=== PATIENT | female | born 1950 | race Caucasian/White ===

== ENCOUNTER 2024-09-07 20:57 | Inpatient (IN) | payer MEDICARE, SELFPAY ==
[2024-09-07] VITALS (10 sets, daily range): BP systolic 150–192; BP diastolic 76–100; BMI 18.1
[2024-09-07 17:29] LABS: Urine Albumin 3+ (Neg - Trace); Urine Bilirubin Negative (Negative); Urine Character Clear (Clear); Urine Color Yellow; Urine Glucose Negative (Negative); Urine Ketone Negative (Negative); Urine Leukocyte 2+ (Negative); Urine Nitrite Negative (Negative); Urine Occult Blood 2+ (Negative); Urine Specific Gravity 1.015 (<1.030); Urine Urobilinogen Negative (Neg - 1+)
[2024-09-07 17:50] LABS: Urine Squamous Cell 0-2 /LPF (Few)
[2024-09-07 17:51] LABS: Urine Bacteria Many (Negative); Urine White Cell 50-60 /HPF (0-5)
[2024-09-07 17:57] LABS: Hematocrit 19.5 % (37.0-47.0); Hemoglobin 6.7 g/dL (12.0-16.0); Mean Corp Hgb Conc. 34.4 g/dL (33.0-37.0); Mean Corpuscular Hgb 31.6 pg (27.0-31.0); Red Blood Cell Count 2.12 10^6/uL (4.20-5.40); Red Cell Dist. Width 13.2 % (11.5-14.5); White Blood Cell Count 16.9 10^3/uL (4.8-10.8)
[2024-09-07 18:05] LABS: Lactic Acid 1.3 mmol/L (0.7-2.0)
[2024-09-07 18:06] LABS: % Basophils 0.4 % (0-2); % Eosinophils 0.2 % (0-6); % Immature Granulocytes 0.7 % (0-0.5); % Monocytes 11.2 % (1.7-9.3); % Neutrophils 82.5 % (42.2-75.2); Absolute Basophils 0.1 10^3/uL (0-0.2); Absolute Immature Granulocytes 0.1 10^3/uL (0-0.05); Absolute Lymphocytes 0.8 10^3/uL (1.2-3.4); Absolute Monocytes 1.9 10^3/uL (0.1-0.6); Absolute Neutrophils 13.9 10^3/uL (1.4-6.5); Mean Platelet Volume 9.4 fL (7.4-10.4); Nucleated Red Blood Cells % 0 %; Platelet Count 678 10^3/uL (130-400)
[2024-09-07 18:16] LABS: ALT (SGPT) 25 U/L (0-35); AST (SGOT) 34 U/L (14-36); Albumin 3.8 g/dl (3.5-5.0); Alkaline Phosphatase 74 U/L (38-126); Blood Urea Nitrogen 82 mg/dl (7-17); Calcium 9.7 mg/dl (8.4-10.2); Carbon Dioxide 17 mmol/L (22-30); Chloride 108 mmol/L (98-107); Glucose 124 mg/dl (70-99); Sodium 136 mmol/L (135-145); Total Bilirubin 0.7 mg/dl (0.2-1.3); Total Protein 6.2 g/dl (6.3-8.2); eGFR 14.73
[2024-09-07] MEDS: NSS 500 IV (18:49)
[2024-09-07] MEDS: ROCEPHIN 1000 MG IV (18:49)
--- NOTE | 2024-09-07 18:57 | ED.GENMED ---
History of Present Illness
General
Chief Complaint: Change in Mental Status
Source: patient
Exam Limitations: none
Time Seen by Provider: 09/07/24 18:36
Nursing documentation reviewed up to this point in time: agreed with
History of Present Illness
History of Present Illness:
Patient with history of recent fall with pelvic fracture, who has not been able to ambulate for the past 2 months despite physical therapy, presents to ED from half-way secondary to increased weakness and depressed mental status. Upon arrival,
patient is found to be febrile and somnolent, but arousable. Patient with mild incoherent, slurred speech noted. Unable to obtain any further information at this time.
Review of Systems
Review of Systems
Allergies reviewed?: Yes
Unable to obtain full review of systems at this time due to: due to acuity
All Other Systems: Not applicable
Phy Exam
Physical Exam
Physical Exam:
Physical Exam
General: mild distress, not acutely ill. febrile.
Head: nc/at. eomi
Neck: supple. normal range of motion
Heart: tachycardic, regular. no murmur
Lungs: no acute respiratory distress. clear bilaterally
Abdomen: normal bowel sounds. not tender. rectal exam (EMMIE Villa, at bedside): dark green, heme positive
Neuro: somnolent but arousable. no focal deficit. slurred speech noted
Skin: no rash
Psychiatric: well kept. interactive and cooperative
Extremities: no edema.
Course
Orders/Labs/Results
Orders:
Orders
09/07/24 Breakfast
Clear Liquid
At Your Request: Limited Participation
09/07/24 17:06
Electrocardiogram (*1) Urgent
Reason for Study: Tachycardia
EKG- Treatment ONCE
09/07/24 17:17
CMP [Comprehensive Metabolic Panel] Urgent
Complete Blood Count/With Diff Urgent
Ferritin Urgent
Comment: ADD ON
Iron Urgent
Comment: ADD ON
Lactic Acid Urgent
Total Iron Binding Urgent
Comment: ADD ON
Urinalysis Reflex To Culture Urgent
Date Specimen was Collected: 09/07/24
Time Specimen was Collected: 17:06
Urine Microscopic Reflex Cult Urgent
Urine Culture Urgent
MARYCHUY Source: U
Specimen Description:
Date Specimen was Collected: 09/07/24
Time Specimen was Collected: 17:06
09/07/24 17:21
Blood Culture Urgent
MARYCHUY Source: Blood/Venous
Specimen Description:
09/07/24 17:40
Straight Cath As Directed
Frequency: One time now
09/07/24 18:41
Add On- LAB Urgent
Tests Added?: iron, ferritin, TIBC
CefTRIAXone [Rocephin] 1,000 mg IV NOW STA
09/07/24 18:42
CT Head W/o Iv Contrast Urgent
Comment:
Reason For Exam: mental status change w slurred speech
09/07/24 18:43
0.9% Sodium Chloride 500 ml [Nss] 500 ml IV BOLUS
Acetaminophen [Tylenol/Feverall] 650 mg RECTAL NOW STA
09/07/24 18:47
Type+Screen Urgent
09/07/24 19:53
* Blood Bank Products Urgent
Blood Bank Products: *Packed RBC Leuko(PRBC's)
Quantity: 1
Transfuse Today: Yes
Reason: Anemia
09/07/24 19:54
IV Insert/Care/Rem.- Treatment PRN
09/07/24 19:55
ABO2 Routine
BBK Wristband Number:
Associate notified that ABO2 has been ordered: Y
Date: 09/07/24
Time: 18:59
Leather Production Artisan ID: [id number]
09/07/24 20:34
CT Abd/pel Without Iv Or Oral Urgent
Comment:
Reason For Exam: Anemia, [place], Pelvic Fracture
09/07/24 20:42
Admit/Transfer Patient As Directed
Co-Sign Provider:
Level of Care: Inpatient admission
Assign to:: IMU- Intermediate Care
Physician / Group: [facility]
Diagnosis: Symptomatic Anemia, Sepsis / UTI, Acute TME
Reason for Hospitalization: Symptomatic Anemia, Sepsis / UTI, Acute TME
Expected length of stay greater than two midnights?: Yes
ELOS- Estimated Length of Stay in days: 4
I certify the patient meets the requirements for IP care: Yes
PRN Pain Medication Management As Directed
May give lesser potent ordered pain med per pt: Yes
preference::
Protocol:: Medication orders for pain may be administered in a
manner that supports deferring to patient preference
when the pt is:
- Requesting an ordered lesser potent pain medication.
Least to most potent pain medications are defined
as: acetaminophen < NSAID < tramadol < opioids
(morphine, oxycodone, hydromorphone).
- Requesting a lesser dose of the same medication IF
ORDERED.
- Requesting a less intrusive route of administration
if both routes are prescribed by the provider (PO <
IV).
09/07/24 20:43
Speech Screening from [place] Routine
09/07/24 20:44
Code Status As Directed
Resuscitation Status: Full Code
09/07/24 20:49
CXR2 [CR Chest - 2 Views ] Urgent
Comment:
Reason For Exam: Fever
09/07/24 22:23
Acetaminophen [Tylenol] 650 mg PO Q4HPRN PRN
Lorazepam [Ativan] 0.5 mg IV Q6HPRN PRN
Polyethylene Glycol Powder [Miralax] 17 grams PO HS
Sterile Water For Inj [Sterile Water For Injection 1000 ml] 1,000 ml Sodium Bicarbonate 150 meq IV 80 mls/hr
09/07/24 22:23
Activity As Directed
Activity Level: Ambulate
With Assistance
Bladder Scan As Directed
Follow Bladder Retention/Intermittent Cath Algorithm?: Yes
PRN if no void in __ hours: 6
Frequency: Per Retention Algorithm
If Bladder Scan Result >: 400
then:: Straight cath
I/O [Intake/ Output] As Directed
Frequency: Per unit guidelines
Neurological Checks As Directed
Frequency: q4h
Pneumatic Compression Sleeves As Directed
Type: Knee high
Straight Cath As Directed
Frequency: Per Retention Algorithm
Additional Instructions: straight cath as needed per acute urinary retention algorithm for 24 hrs
Additional Instructions: for bladder scan greater than 400 mL
Vital Signs As Directed
Frequency: Per unit guidelines
Weight As Directed
Frequency: Daily
Oxygen Therapy [O2 Therapy] [RESP] Routine
Titrate/Wean O2 to maintain O2 sat greater than (%): 94
Ot Eval And Treat Routine
PT Consult [Pt Eval And Treat] Routine
Activity Level: Ambulate
With Assistance
Speech Therapy Eval & Treat Routine
DX Deep Vein Thrombosis Video Routine
09/08/24 04:34
Basic Metabolic Panel IN AM
Complete Blood Count/No Diff IN AM
Magnesium IN AM
PTT IN AM
Phosphorus IN AM
Prothrombin Time IN AM
09/08/24 08:00
Amlodipine [Norvasc] 5 mg PO DAILY
Bupropion(24Hr)Extended Releas [WELLBUTRIN XL (24 hour extended release)] 150 mg PO DAILY
Ferrous Sulfate [Feosol] 325 mg PO BID
Sodium Bicarbonate 650 mg PO BID
Sodium Zirconium Cyclosilicate [Lokelma] 10 gram PO DAILY
09/08/24 18:00
CefTRIAXone [Rocephin] 1,000 mg IV Q24H
Abnormal Lab Results
09/07/24 09/07/24
17:17 18:47
WBC 16.9 H 10^3/uL
(4.8-10.8)
RBC 2.12 L 10^6/uL
(4.20-5.40)
Hgb 6.7 L* g/dL
(12.0-16.0)
Hct 19.5 L* %
(37.0-47.0)
MCH 31.6 H pg
(27.0-31.0)
Plt Count 678 H 10^3/uL
(130-400)
Abs Immat Gran (auto) 0.1 H 10^3/uL
(0-0.05)
Absolute Neuts (auto) 13.9 H 10^3/uL
(1.4-6.5)
Absolute Lymphs (auto) 0.8 L 10^3/uL
(1.2-3.4)
Absolute Monos (auto) 1.9 H 10^3/uL
(0.1-0.6)
Immature Gran % 0.7 H %
(0-0.5)
Neutrophils % 82.5 H %
(42.2-75.2)
Lymphocytes % 5.0 L %
(20.5-51.1)
Monocytes % 11.2 H %
(1.7-9.3)
Potassium 6.0 H mmol/L
(3.5-5.1)
Chloride 108 H mmol/L
(98-107)
Carbon Dioxide 17 L mmol/L
(22-30)
BUN 82 H mg/dl
(7-17)
Creatinine 3.2 H mg/dL
(0.6-1.0)
Glucose 124 H mg/dl
(70-99)
TIBC 204 L ug/dl
(265-497)
Ferritin 590.0 H ng/ml
(11.1-264.0)
Total Protein 6.2 L g/dl
(6.3-8.2)
Ur Occult Blood Reflex 2+ A
(Negative)
Leukocyte Esterase Rfl 2+ A
(Negative)
Urine RBC 3-6 A /HPF
(0-2)
Urine WBC (Reflex) 50-60 A /HPF
(0-5)
Urine Bacteria (Reflex) Many A
(Negative)
Urine Albumin (Reflex) 3+ A
(Neg - Trace)
Crossmatch IS Only See Detail
09/07/24 17:17
09/07/24 17:17
Vital Signs
Initial and Last Documented VS:
Initial Vital Signs
BP
160/76
09/07/24 16:51
Last Documented Vital Signs
Temp Pulse Resp BP Pulse Ox
99.5 F 94 14 152/95 96
09/08/24 11:15 09/08/24 10:15 09/08/24 10:15 09/08/24 09:31 09/08/24 10:43
MDM/Problems Addressed
MDM/Problems Addressed:
Patient's presenting symptoms likely multifactorial, including anemia along with UTI. CT head ordered secondary to slurred speech no acute findings noted.-
Patient will be admitted for IV antibiotics, IV fluids, and blood transfusion.
Blood transfusion consent, signed by patient's daughter.
*Critical Care Note
Total Time (30-74mins, 75-104mins- exclusive of procedures): Not Applicable
ED Attending Note
-
Portions of this chart may have been created with voice recognition software.� Occasional wrong word or��sound alike� substitutions may have occurred due to the inherent limitations of voice recognition software.
Discharge Plan
Departure
Patient Disposition: Admit
Date of Disposition: 09/07/24
Time of Disposition: 20:00
Admit to: Telemetry
Presentation/result/management discussed w/ accepting MD/DO: Hospitalist
Discharge Problem:
Acute UTI, Anemia, Altered mental status
Interventions
Interventions:
*Risk Screen - Suicide Last Done: 09/07/24 16:52
*General Assessment Last Done: 09/07/24 16:52
*Neglect/Abuse Screening Last Done: 09/07/24 16:52
*ED- Fall Risk Assessment Last Done: 09/07/24 16:52
*ED COVID-19 Vaccine History Last Done: 09/07/24 16:52
*Nursing Disposition Last Done: 09/07/24 22:37
ED- Neurological Assessment Last Done: 09/07/24 20:07
ED Swallowing Screen Last Done: 09/07/24 20:42
Discharge Date and Time
Discharge Date/Time: 09/07/24 22:38
[2024-09-07 19:09] LABS: Iron 50 ug/dl (37-170); Percent Saturation 24 % (20-50); Total Iron Binding Capacity 204 ug/dl (265-497)
[2024-09-07] MEDS: TYLENOL/FEVERALL 650 MG RECTAL (19:52)
--- NOTE | 2024-09-07 21:18 | HPS.HSE ---
Family Physician
-
Family Physician: Seymour Cedeno
Chief Complaint
-
Lethargy, Tachycardia
History of Present Illness
Patient is a 73y F with PMH significant for CKD IV, hyperkalemia, anemia of CKD and recent pelvic fracture who presents to ED from local OR for evaluation of lethargy and tachycardia. History obtained from OR record and family at the bedside.
Patient suffered pelvic fracture about one month ago - hospitalized at [facility]. She was transferred to [facility] about 3 weeks ago. Rehab has not been proceeding well and patient is largely inactive / not participating well with
therapy. Family states that she was seen last on Sat / Sun and was alert / talking at that time - if a bit weak and mildly confused. She has not had any evident cough, N/V/D, etc.
Today, patient was poorly responsive at the OR and noted to be tachycardic. She was sent to the ED for further evaluation.
At the time of my examination, patient is lethargic but does wake / respond to voice. She attempts to answer questions but seems very weak. Unable to provide any significant additional history.
Medical History
Past Medical History
Past Medical History: Reports Other
Additional Past Medical History:
CKD IV
Hyperkalemia
Anemia of CKD
Pelvic Fracture
Generalized Anxiety
Hypertension
Past Surgical History: Reports Other
Additional Past Surgical History:
Ex Lap / Small Bowel Resection (SBO)
TITO
Social History
Tobacco: Non-smoker
Alcohol: None
Drug: None
Family History
Family History: Not pertinent
Allergies / Home Medications
Allergies reflects when Allergies were last updated in [employer].
Home Medications with original date entered in [employer]
Allergy/Medication List:
Allergies
Allergy/AdvReac Type Severity Reaction Status Date / Time
Beta-Blockers Allergy Unknown Unknown Verified 09/07/24 17:02
(Beta-Adrenergic Bloc
Home Medications
acetaminophen 325 mg tablet 650 mg PO Q6H PRN Pain / Fever 09/07/24
amlodipine 5 mg tablet 5 mg PO DAILY 09/07/24
bisacodyl 10 mg rectal suppository 10 mg WV DAILY PRN constipation 09/07/24
bupropion HCl 150 mg 24 hr tablet, extended release 150 mg PO DAILY 09/07/24
cholecalciferol (vitamin D3) 50 mcg (2,000 unit) tablet 50 mcg PO DAILY 09/07/24
clonazepam 1 mg tablet 1 mg PO TID 09/07/24
famotidine 20 mg tablet 20 mg PO DAILY 09/07/24
ferrous sulfate 325 mg (65 mg iron) tablet 325 mg PO HS 09/07/24
heparin (porcine) 5,000 unit/mL injection syringe 5,000 unit SC Q8H 09/07/24
lidocaine 5 % topical cream 1 applic topical BID 09/07/24
polyethylene glycol 3350 17 gram oral powder packet (Miralax) 17 g PO HS 09/07/24
sennosides 8.6 mg tablet (senna) 8.6 mg PO BID 09/07/24
sodium bicarbonate 650 mg tablet 650 mg PO BID 09/07/24
sodium zirconium cyclosilicate 10 gram oral powder packet (Lokelma) 10 g PO DAILY 09/07/24
tramadol 50 mg tablet 50 mg PO BID 09/07/24
vitamin B complex 1 tab PO DAILY 09/07/24
Review of Systems
-
History Source: Patient (limited ROS due to lethargy / weakness) and Family
A 12 point ROS was completed and negative except as noted: Yes
Constitutional: Reports Fatigue
Respiratory: Denies Cough or Trouble Breathing
Cardiac: Denies Chest Pain
Abdomen/GI: Denies Abdominal Pain, Nausea, Vomiting or Diarrhea
Musculoskeletal: Reports Joint Pain
Physical Exam
Vital Signs
Vital Signs
Temp Pulse Resp BP Pulse Ox
98.1 F 106 17 169/82 97
09/07/24 21:16 09/07/24 21:16 09/07/24 21:16 09/07/24 21:16 09/07/24 21:16
Physical Exam
General: Other (73y F lethargic, not in obvious distress.)
HEENT: Other (Dry MM. Neck supple. Pupils narrow but reactive.)
Respiratory: Other (Few bibasilar rales - decreased effort - otherwise clear.)
Cardiac: S1/S2, Regular Rhythm and Murmur (II/ PADMINI)
GI: Soft, Non Distended, Normal Bowel Sounds and Other (Mild lower abdominal tenderness. No rebound / guarding.)
Musculoskeletal: No Clubbing, No Cyanosis and Other (Trace edema b/l feet. Pain with ROM either LE. R foot internally rotated.)
Neuro: Other (Lethargic. Open eyes to voice and attempts to answer questions - but soft / incomplete speech.)
Laboratory Results
-
09/07/24 17:17
09/07/24 17:17
Laboratory Results
Lactic Acid 1.3 mmol/L (0.7-2.0) 09/07/24 17:17
Total Bilirubin 0.7 mg/dl (0.2-1.3) 09/07/24 17:17
AST 34 U/L (14-36) 09/07/24 17:17
ALT 25 U/L (0-35) 09/07/24 17:17
Alkaline Phosphatase 74 U/L (38-126) 09/07/24 17:17
Impression/Plan
-
A/P: Patient is a 73y F with PMH significant for hypertension, CKD IV, chronic anemia and recent pelvic fracture who presents to ED from local OR for evaluation of lethargy and tachycardia.
Acute TME
- Admit for further evaluation and treatment.
- Likely multifactorial change in mental status.
- Med effect / sedation, sepsis, anemia, etc.
- Hold sedating meds acutely.
- Treat individual issues as noted below.
- Follow for clinical improvement.
Acute Blood Loss Anemia on Chronic Anemia of CKD
Heme Positive Stools
- Has known CKD and chronic anemia per family.
- Recent pelvic fracture so will check CT to rule out bleeding / hematoma in the pelvis.
- Hold heparin for now.
- Transfusion of one unit PRBCs ordered in the ED.
- Iron studies c/w chronic disease (or acute blood loss).
- Follow H&H for improvement / additional PRBCs if needed.
- Reportedly heme positive stool in the ED.
- Will ask GI to evaluate.
UTI
Sepsis secondary to the above
- Unable to elicit any symptoms due to current lethargy / metal status.
- UA with WBC and bacteria.
- Patient presents with fever, leukocytosis, tachycardia and abnormal UA.
- Continue IV ceftriaxone pending culture data.
- Follow fever curve and monitor for any new / focal signs or symptoms of infection.
- IVF support.
CKD IV
Chronic Hyperkalemia
Chronic Metabolic Acidosis
- Unclear baseline, though family reports CKD is stage IV.
- Patient is on chronic, daily Lokelma as well as bicarb supplementation.
- Continue current med regimen for now.
- IVFs with supplemental bicarb.
- Obtain prior records from [place] for review of labs / trends.
- Nephrology evaluation for additional recommendations.
Benign Hypertension
- Stable. Continue amlodipine with holding parameters.
Generalized Anxiety
- Patient noted to be on chronic clonazepam 1mg TID.
- Will hold for now along with other sedating medications given acute TME / lethargy.
- PRN lorazepam for breakthrough anxiety / to prevent any withdrawal symptoms.
Pelvic Fracture
- Poor progress with PT thus far per family.
- PT / OT evals here.
- Weight bearing as tolerated.
- Adjust pain regimen as able to minimize sedation.
DVT Prophylaxis: SCDs
Code Status: Full
[2024-09-07] MEDS: MIRALAX PO (23:18)
[2024-09-07] MEDS: SODIUM BICARBONATE 1150 MEQ IV (23:18)
--- NOTE | 2024-09-07 23:45 | PTCARENOTE ---
Received patient from ED on stretcher. Patient aao x1 to self. At times, patient attempts to speak, then appears to become frustrated and stops speaking. NSR to ST on the monitor, lung sounds diminished throughout, likely d/to poor respiratory
effort. BS active x4. Patient incontinent of soft, formed, green bm upon arrival to IMU. Stage 1 noted to sacrum, barrier ointment applied. Patient incontinent of urine upon arrival as well. Hygiene provided and purewick applied. Patient moaning
with activity, but calm and no s/s of pain at rest. 1u PRBC completed upon arrival to IMU as well. Patient unable to answer majority of questions due to cognition at this time. Call hamilton within reach, bed alarm on. Will continue to monitor patient
closely.
[2024-09-08] VITALS (15 sets, daily range): BP systolic 123–184; BP diastolic 80–106; PULSE 99; O2SAT 96; BMI 18.1
[2024-09-08 04:47] LABS: Hematocrit 32.4 % (37.0-47.0); Hemoglobin 10.9 g/dL (12.0-16.0); Mean Corp Hgb Conc. 33.6 g/dL (33.0-37.0); Mean Corpuscular Hgb 31.2 pg (27.0-31.0); Mean Corpuscular Volume 92.8 fL (81.0-99.0); Mean Platelet Volume 9.4 fL (7.4-10.4); Platelet Count 460 10^3/uL (130-400); Red Blood Cell Count 3.49 10^6/uL (4.20-5.40); Red Cell Dist. Width 13.8 % (11.5-14.5)
[2024-09-08 04:59] LABS: INR 1.08; PT 14.3 Sec (11.4-14.6)
[2024-09-08 05:00] LABS: APTT 27.6 Sec (23.4-35.0)
[2024-09-08 05:09] LABS: Blood Urea Nitrogen 76 mg/dl (7-17); Calcium 9.3 mg/dl (8.4-10.2); Carbon Dioxide 20 mmol/L (22-30); Chloride 110 mmol/L (98-107); Estimated Creatinine Clearance 12 ml/min; Glucose 98 mg/dl (70-99); Magnesium 2.3 mg/dl (1.6-2.3); Phosphorus 4.8 mg/dl (2.5-4.5); Potassium 4.8 mmol/L (3.5-5.1); Sodium 138 mmol/L (135-145)
[2024-09-08 06:23] LABS: TSH Reflex To Free T4 1.32 uIU/ml (0.47-4.68)
[2024-09-08] MEDS: NORVASC 5 MG PO (09:31)
[2024-09-08] MEDS: WELLBUTRIN XL (24 hour extended release) 150 MG PO (09:33)
[2024-09-08] MEDS: FEOSOL 325 MG PO ×2 (09:33→19:50)
[2024-09-08] MEDS: SODIUM BICARBONATE 650 MG PO ×2 (09:33→19:50)
--- NOTE | 2024-09-08 10:20 | CM ---
Patient from [facility] with Hx pelvic Fx with Dx Acute TME, Acute Blood Loss Anemia s/p transfusion, UTI, sepsis. Room air. Receiving IV Abx, IVF w Bicarb. WBAT. PT/OT held today. Per nurse; A/O x1,
Spoke with Lup[employer] Sim & Freddy, Badger Distiller Operator, [facility];
the patient came to them from [facility] on 08/05/24. She was living alone in an apartment in [place].
The patient was A/O x3, had aphasia.
She was assisted with ADLs and ambulatory 10 feet with RW.
The patient was receiving PT/OT: she was independent with UB dressing, required max assist LB dressing, moderate assist for toileting.
Patient's daughter Donna had been discussing managing patient's finances for possible shelter care.
Freddy states daughter had changed patient to straight Medicare on 09/05/24---> spoke with Donna, Admitting - she ran her and confirmed patient now has straight Medicare.
Plan follow up after patient works with PT/OT.
Plan follow up with daughter re; return to [facility].
[2024-09-08] MEDS: LOKELMA 10 GRAM PO (10:54)
[2024-09-08] MEDS: TYLENOL 650 MG PO (12:01)
[2024-09-08] MEDS: SODIUM BICARBONATE 1150 MEQ IV (12:01)
--- NOTE | 2024-09-08 12:19 | W.PN.HOSP.TC ---
Addendum entered and electronically signed by Emeterio Churchill MD 09/09/24 09:33:
not covid pna, meant to say acute blood loss anemia
Original Note:
Today's Communication/Plan
-
Assessment / Plan
Assessment / Plan
NAD
Scleral Anicteric
MMM
No JVD
CTABL
RRR, S1/S2
Soft, NT, ND, BS+
Warm, Dry
Lower extremity pain foot and right foot internally rotated/dropped
AAOx person
Calm
Acute toxic metabolic encephalopathy appears to be involving. Potentially related to COVID-pneumonia as hemoglobin of 6.9 with improvement after 1 unit PRBC. Continue to hold sedating medications. Urine analysis positive for findings consistent
with UTI therefore follow-up on urine culture continue antibiotics with Rocephin.
Anemia, normocytic�acute on chronic
S/p 1 unit PRBC
FOBT positive
GI consult
Transfuse if hemoglobin less than 7
CKD stage IV/V with evidence of metabolic acidosis complicated by hyperkalemia of 6.0 improved to 4.8
Continue bicarb 650 twice daily
S/p Lokelma continue daily dosing
Avoid nephrotoxins hypotension
Monitor urinary output
Nephrology follow-up
Hypertension
Continue antihypertensives
VIVIAN
Hold clonazepam acute TME/telemetry
Pelvic fracture
PT OT
Weight-bear as tolerated
Anticipated Discharge: > 48 hours
Subjective/Interval History
-
Date of Service: September 08, 2024
seen and examined. no new complaints. no acute ovenright events
Objective Data
-
Labs:
Laboratory Results
09/08/24
04:34
WBC 11.0 H
Hgb 10.9 L D
Hct 32.4 L
Plt Count 460 H D
PT 14.3
INR 1.08
APTT 27.6
Sodium 138
Potassium 4.8
Chloride 110 H
Carbon Dioxide 20 L
BUN 76 H
Creatinine 3.1 H
Glucose 98
Calcium 9.3
Vital Signs:
Vital Signs
Temp Pulse Resp BP Pulse Ox
99.5 F 94 14 152/95 96
09/08/24 11:15 09/08/24 10:15 09/08/24 10:15 09/08/24 09:31 09/08/24 10:43
I&O
09/07/24 09/08/24 09/09/24
06:59 06:59 06:59
Intake Total 250 / 250 240 / 240
Output Total 250 / 250 250 / 250
Balance 0 / 0 -10 / -10
--- NOTE | 2024-09-08 13:11 | PTOTSP ---
Speech Therapy Evaluation:
Pt presents with grossly functional oropharyngeal swallow at bedside, however trials limited 2/2 restriction to clear liquids. Risk of aspiration elevated given acute TME and ambulatory dysfunction with recent pelvic fracture. CXR without PNA, pt
afebrile, and pt on room air.
Recommend:
1. Continue thin liquid diet (clear liquids per medical team)
2. Medications as tolerated
3. General aspiration precautions
4. HAND ZIPPER TRIMMER to follow to monitor tolerance of diet and assess candidacy for initiation of solids when appropriate.
--- NOTE | 2024-09-08 16:03 | PTCARENOTE ---
Patient was drowsy this morning, by lunch time patient was awake and alert, able to feed herself, participated in physical therapy. Patients right foot in inverted inward, slightly swollen and painful. Discussed with PT and Dr. Churchill. Patient
received Tylenol this morning with relief however after PT her pain increased. New orders pending.
[2024-09-08] MEDS: ULTRAM 25 MG PO (16:19)
[2024-09-08] MEDS: STERILE WATER FOR INJECTION 10 ML IV (17:11)
[2024-09-08] MEDS: ROCEPHIN 1000 MG IV (17:12)
[2024-09-08] MEDS: MIRALAX 17 GRAMS PO (19:51)
--- NOTE | 2024-09-08 22:05 | PTCARENOTE ---
Patient aao x2-3 since start of shift, improved alertness since admission previous evening. Able to make needs known, continues with slow speech at times. NSR on the monitor, lungs diminished throughout. BS active x4. Purewick remains in place,
drained 500ml clear yellow urine at this time. Patient refusing hygiene at this time due to chronic pain to b/l feet. Will continue to monitor pain and review pain management techniques. Patient has IV to right wrist/fa with Sterile water and 150mEq
sodium bicarb. Call hamilton within reach, will continue to monitor patient closely.
[2024-09-09] VITALS (16 sets, daily range): BP systolic 143–176; BP diastolic 79–97; PULSE 88–92; O2SAT 96–98; BMI 19.0
[2024-09-09] MEDS: ULTRAM 25 MG PO ×2 (01:47→12:00)
[2024-09-09] MEDS: SODIUM BICARBONATE 1150 MEQ IV (01:48)
--- NOTE | 2024-09-09 01:59 | PTCARENOTE ---
Patient c/o pain 10/10 to b/l feet, states it has been 10/10 all day. PRN Tramadol administered per orders. Call hamilton within reach, will continue to monitor.
[2024-09-09 04:56] LABS: % Basophils 0.5 % (0-2); % Eosinophils 1.2 % (0-6); % Immature Granulocytes 0.5 % (0-0.5); % Monocytes 13.8 % (1.7-9.3); Absolute Eosinophils 0.1 10^3/uL (0-0.7); Absolute Lymphocytes 1.1 10^3/uL (1.2-3.4); Absolute Neutrophils 5.2 10^3/uL (1.4-6.5); Hematocrit 27.1 % (37.0-47.0); Hemoglobin 9.5 g/dL (12.0-16.0); Mean Corp Hgb Conc. 35.1 g/dL (33.0-37.0); Mean Corpuscular Hgb 31.6 pg (27.0-31.0); Mean Platelet Volume 9.3 fL (7.4-10.4); Nucleated Red Blood Cells % 0 %; Platelet Count 381 10^3/uL (130-400); Red Blood Cell Count 3.01 10^6/uL (4.20-5.40); Red Cell Dist. Width 13.3 % (11.5-14.5); White Blood Cell Count 7.5 10^3/uL (4.8-10.8)
[2024-09-09 05:30] LABS: Blood Urea Nitrogen 67 mg/dl (7-17); Calcium 8.7 mg/dl (8.4-10.2); Carbon Dioxide 31 mmol/L (22-30); Chloride 95 mmol/L (98-107); Estimated Creatinine Clearance 17 ml/min; Glucose 96 mg/dl (70-99); Potassium 3.9 mmol/L (3.5-5.1); Sodium 132 mmol/L (135-145)
[2024-09-09] MEDS: NSS 1000 IV (06:29)
--- NOTE | 2024-09-09 08:39 | PTCARENOTE ---
Patient received from bd special education teacher. Patient resting comfortably in bed. AAOx2-3, a little fleety and forgetful at times. No events noted overnight. Complaints of pain in feet and some generalized, see MAR. NSS @ 60mL/hr through IV. No testing
scheduled at this time. Call hamilton in reach.
[2024-09-09] MEDS: NORVASC 5 MG PO (09:12)
[2024-09-09] MEDS: FEOSOL 325 MG PO ×2 (09:12→20:20)
[2024-09-09] MEDS: WELLBUTRIN XL (24 hour extended release) 150 MG PO (09:12)
[2024-09-09] MEDS: SODIUM BICARBONATE 650 MG PO ×2 (09:12→20:20)
[2024-09-09] MEDS: LOKELMA PO (09:13)
[2024-09-09] MEDS: LOKELMA 10 GRAM PO (11:33)
--- NOTE | 2024-09-09 12:50 | PN.CDI ---
CDI
- -
CDI:
Physician Documentation Request
Admit Date: 09/07/24 20:57
Dear Doctor Zhao,
Please review the following and provide your response in the progress notes.
Clinical Indicators:
The diagnosis of sepsis was documented on 09/08 in H&P but is not consistently noted in subsequent documentation.
Presenting temp 100.5. heart rates 108-110, respiratory rates 14-18 WBC 16.9
Progress note states 'Urine analysis positive for findings consistent with UTI therefore follow-up on urine culture continue antibiotics with Rocephin.'
Urine culture positive for E coli
Please clarify the following:
____ - Sepsis was present on admission
____ - Sepsis was ruled out
____ - Other
Use of terms such as suspected, likely, concern for, or probable (associated with a specific diagnosis that is being evaluated, monitored, or treated as if it exists) are acceptable and can be coded in the inpatient setting, when documented at the
time of discharge.
Thank you,
Deepa Palma RN, BSN
CDI Specialist
tiger text
Please use your independent medical judgment in providing your response.
--- NOTE | 2024-09-09 13:28 | CON.GI ---
Addendum entered and electronically signed by Adriana Tristan MD 09/09/24 16:55:
I saw and examined the patient.
The OUTSOLE BEVELER's note was reviewed and I agree with the note.
Comment: This is a 73-year-old female with past medical history listed as below was transferred for altered mental status and tachycardia from [facility]. She also recently had pelvic fracture and was at [facility] about a
month ago she was noted to have UTI on admission and was started on antibiotics and was also noted to have a hemoglobin of 6.7 with heme positive stools in the ER but a repeat stool test was negative for blood and after 1 unit of packed red blood
cells on 09/07/2024 her repeat hemoglobin today is 9.5. she had a bowel movement today no melena was reported. She did have iron studies 09/07 which were more consistent with anemia of chronic disease, she also has a history of CKD. She also says that
she did have an endoscopy and a colonoscopy in the past but it is unclear when and what the findings were
Assessment and plan anemia is likely multifactorial from recent pelvic fracture, CKD, and iron studies are consistent with anemia of chronic disease. Could also have a component of chronic GI blood loss but currently has no overt bleeding and
patient does not want to have an endoscopy or a colonoscopy although she does have altered mental status and a call was placed out to her daughter by Donna Clark. She is currently on antibiotics for UTI. If family decides to proceed with endoscopy
and colonoscopy can be done as outpatient with OP f/u since she currently has no active bleeding and hemoglobin is stable after 1 unit of packed red blood cells transfusion.
GI will sign off and will be available as needed
Addendum entered and electronically signed by MAU Brooks 09/09/24 14:40:
reviewed with Dr. Tristan recent fracture also adding to anemia. With change in mental status will hold on scopes for now ok to advance diet to low residue.
Original Note:
Consultation
-
Date/Time Consultation Requested: 09/09/24 2743
Date/Time Consultation Performed: 09/09/24 1330
Requesting Provider: Emeterio Churchill MD
Performing Provider: MAU Simmons, Adriana Tristan MD
Reason for Consultation: anemia
Medical History
Chief Complaint / HPI
History of Present Illness:
Pt is a 73yo with hx CKD stage IV, anxiety, HTN, anemia, pelvic fracture, prior SB resection, , TITO with noted lethargy and tachycardia from SNF. Per chart pt with recent pelvic fracture and admission at [facility]. She was
sent to the [facility] for rehab. Per ER review was conversant and confused last week but now noted with lethargy on admission. On admission noted with hbg 6.7 with dark green heme + stool in ER then neg after admission and normal MCV, WBC 16.9,
platelet 678 , creat 3.2, BUN 82, K 6, and iron studies with iron 50, TIBC 204, % sat 24, ferritin 590 no consistent with iron deficiency.
In review with patient she admits to hx EGD and colonoscopy in past but unable to give any details. She admits to hx dysphagia but limited in history of symptoms but states with solids and liquids. She admits to chronic GERD on Famotidine
daily and abdominal pain in past but not today. She otherwise denies nausea, vomiting, diarrhea, constipation or rectal bleeding.
Past Medical History
Past Medical History: HTN, Renal Failure (CKD IV), Psychiatric (anxiety) and Other (hyperkalemia, anemia, pelvic fracture )
Past Surgical History: Bowel Resection (exp lap with SB resection, ), and Gynecological (TITO)
Social History
Tobacco: Non-Smoker
Alcohol: None
Drug: None
Living: Penitentiary
Employment: Retired
Family History
Family History: Other (denies family hx GI issues )
Allergies / Home Medications
Allergy/AdvReac Type Severity Reaction Status Date / Time
Beta-Blockers Allergy Unknown Verified 09/07/24 22:28
(Beta-Adrenergic Bloc
�Medication �Instructions �Recorded
acetaminophen 325 mg tablet 650 mg PO Q6H PRN Pain / Fever 09/07/24
amlodipine 5 mg tablet 5 mg PO DAILY Blood Pressure 09/07/24
bisacodyl 10 mg rectal suppository 10 mg NH DAILY PRN constipation 09/07/24
bupropion HCl 150 mg 24 hr tablet, 150 mg PO DAILY Mental 09/07/24
extended release Health/Anxiety
cholecalciferol (vitamin D3) 50 50 mcg PO DAILY Supplement 09/07/24
mcg (2,000 unit) tablet
clonazepam 1 mg tablet 1 mg PO TID Mental Health/Anxiety 09/07/24
famotidine 20 mg tablet 20 mg PO DAILY Gastrointestinal 09/07/24
Issue
ferrous sulfate 325 mg (65 mg 325 mg PO HS Supplement 09/07/24
iron) tablet
heparin (porcine) 5,000 unit/mL 5,000 unit SC Q8H Blood Clot 09/07/24
injection syringe Prevention/Tx
lidocaine 5 % topical cream 1 applic topical BID Pain 09/07/24
polyethylene glycol 3350 17 gram 17 g PO HS Constipation 09/07/24
oral powder packet (Miralax)
sennosides 8.6 mg tablet (senna) 8.6 mg PO BID Constipation 09/07/24
sodium bicarbonate 650 mg tablet 650 mg PO BID Supplement 09/07/24
sodium zirconium cyclosilicate 10 10 g PO DAILY HYPERKALEMIA 09/07/24
gram oral powder packet (Lokelma)
tramadol 50 mg tablet 50 mg PO BID Pain 09/07/24
vitamin B complex 1 tab PO DAILY Supplement 09/07/24
Review of Systems
-
Unable to obtain full review of systems at this time due to: Other (pt with confusion)
History Source: Patient
Constitutional: Reports No Symptoms
EENT: Reports No Symptoms
Respiratory: Reports No Symptoms
Cardiac: Reports No Symptoms
Abdomen/GI: Reports Abdominal Pain and Other (dysphagia and GERD)
: Reports No Symptoms
Musculoskeletal: Reports Other (pain with recent pelvic fracture )
Skin: Reports No Symptoms
Neurological: Reports Weakness and Other (forgetfulness )
Endocrine: Reports No Symptoms
Hematologic/Lymphatic: Reports No Symptoms
Vital Signs
Temp Pulse Resp BP Pulse Ox
98.1 F 85 13 155/89 97
09/09/24 07:05 09/09/24 09:12 09/09/24 06:30 09/09/24 09:12 09/09/24 06:30
Physical Exam
Exam
General: Well Developed, Well Nourished and Other (elderly female, conversant and confused )
HEENT: Normocephalic and Anicteric
Respiratory: Clear
Cardiac: Regular Rhythm and Peripheral Edema
GI: Soft, Non Tender and Non Distended
Musculoskeletal: No Clubbing and No Cyanosis
Skin: Warm and Dry
Neuro: Awake, Alert and Other (confused )
Psych: Calm
Results
WBC 7.5 10^3/uL (4.8-10.8) 09/09/24 04:42
Hgb 9.5 g/dL (12.0-16.0) L 09/09/24 04:42
Hct 27.1 % (37.0-47.0) L 09/09/24 04:42
MCV 90.0 fL (81.0-99.0) 09/09/24 04:42
Plt Count 381 10^3/uL (130-400) 09/09/24 04:42
Absolute Neuts (auto) 5.2 10^3/uL (1.4-6.5) 09/09/24 04:42
PT 14.3 Sec (11.4-14.6) 09/08/24 04:34
INR 1.08 09/08/24 04:34
APTT 27.6 Sec (23.4-35.0) 09/08/24 04:34
Sodium 132 mmol/L (135-145) L 09/09/24 04:42
Potassium 3.9 mmol/L (3.5-5.1) 09/09/24 04:42
Chloride 95 mmol/L (98-107) L 09/09/24 04:42
Carbon Dioxide 31 mmol/L (22-30) H 09/09/24 04:42
BUN 67 mg/dl (7-17) H 09/09/24 04:42
Creatinine 2.3 mg/dL (0.6-1.0) H 09/09/24 04:42
Calcium 8.7 mg/dl (8.4-10.2) 09/09/24 04:42
Total Bilirubin 0.7 mg/dl (0.2-1.3) 09/07/24 17:17
AST 34 U/L (14-36) 09/07/24 17:17
ALT 25 U/L (0-35) 09/07/24 17:17
Alkaline Phosphatase 74 U/L (38-126) 09/07/24 17:17
Diagnostic Image Results:
09/07/24 CT Head W/o Iv Contrast
No acute intracranial abnormalities.
Findings compatible with diffuse cortical atrophy with nonspecific white matter changes as described above.
09/07/24 CT Abd/pel Without Iv Or Oral
Markedly limited study as a result of several factors, most prominently beam hardening artifact from the patient's bilateral upper extremities and lack of intravenous contrast. There is also limited evaluation due to marked paucity of
intra-abdominal/pelvic fat.
Atrophic left kidney. No gross findings to suggest obstructive uropathy or significant perinephric stranding bilaterally.
Unopacified urinary bladder with at least mild diffuse wall thickening due to underdistention. Other etiology such as cystitis cannot be excluded.
Sigmoid diverticulosis. High attenuation density in the left colon through to the rectum the appearance of which would be most suggestive of enteric contrast.
Healing left pubic bone fractures.
09/07/24 CR Chest - 2 Views
No acute cardiopulmonary process.
Prior GI Procedures:
EGD: pt states on past unable to give details
Colonoscopy: pt states in past unable to give history
Assessment / Plan
-
Pt is a 73yo with hx CKD stage IV, anxiety, HTN, anemia, pelvic fracture, prior SB resection, , TITO with noted lethargy and tachycardia from SNF. Per chart pt with recent pelvic fracture and admission at [facility]. She was
sent to the [facility] for rehab. Per ER review was conversant and confused last week but now noted with lethargy on admission. On admission noted with hbg 6.7 with dark green heme + stool in ER then neg after admission and normal MCV, WBC 16.9,
platelet 678 , creat 3.2, BUN 82, K 6, and iron studies with iron 50, TIBC 204, % sat 24, ferritin 590 no consistent with iron deficiency. In review with patient she admits to hx EGD and colonoscopy in past but unable to give any details. She
admits to hx dysphagia but limited in history of symptoms but states with solids and liquids. She admits to chronic GERD on Famotidine daily and abdominal pain in past but not today. She otherwise denies nausea, vomiting, diarrhea, constipation or
rectal bleeding.
-normocytic anemia iron studies not c/w iron deficiency initially heme + then heme neg
-change in mental status
-hx dysphagia
-CKD
-recent pelvic fracture
-hyerkalemia on admission
other med problems:
-anxiety
-HTN
-anemia
-prior SB resection
-TITO
PLAN:
etiology of anemia related to underlying CKD vs GI process though no iron deficiency vs other
pt currently declines work up with GI but noted with confusion
ER stool heme + then heme neg after admission
I left message for daughter to discuss
trend hbg, transfuse as needed s/p transfusion since admission
on clear diet-- pending decision with family on work up can advance
if persitent anemia consider heme eval for Aranesp
-
-
Thank you for consultation and allowing me to participate in the patient's care. Please call the semiconductor wafers etcher stripper GI physician during the after hours with any questions or concerns.
--- NOTE | 2024-09-09 14:02 | W.PN.HOSP.TC ---
Addendum entered and electronically signed by Emeterio Churchill MD 09/10/24 14:08:
not covid pna, meant to say acute blood loss anemia
Original Note:
Today's Communication/Plan
-
Assessment / Plan
Assessment / Plan
NAD
Scleral Anicteric
MMM
No JVD
CTABL
RRR, S1/S2
Soft, NT, ND, BS+
Warm, Dry
Lower extremity pain foot and right foot internally rotated/dropped
Without ankle rest effusion/erythema nor drainage noted
AAOx person
Calm
Acute toxic metabolic encephalopathy appears to be involving. Potentially related to COVID-pneumonia as hemoglobin of 6.9 with improvement after 1 unit PRBC. Continue to hold sedating medications. Urine analysis positive for findings consistent
with UTI therefore follow-up on urine culture continue antibiotics with Rocephin.
Anemia, normocytic�acute on chronic
S/p 1 unit PRBC
FOBT negative, overnight
GI consult pending
Transfuse if hemoglobin less than 7
CKD stage IV/V with evidence of metabolic acidosis complicated by hyperkalemia of 6.0 improved to 4.8
Continue bicarb 650 twice daily
S/p Lokelma continue daily dosing
Avoid nephrotoxins hypotension
Monitor urinary output
Nephrology follow-up
Right upper and lower extremity pain
Check right wrist x-ray in him, right ankle and foot x-ray
Hypertension
Continue antihypertensives
VIVIAN
Hold clonazepam acute TME/telemetry
Pelvic fracture
PT OT
Weight-bear as tolerated
Anticipated Discharge: > 48 hours
Subjective/Interval History
-
Date of Service: September 09, 2024
Seen and examined. No new complaints. No acute overnight events.
Tenderness at the right foot and ankle along with tenderness at the right hand and wrist
Objective Data
-
Labs:
Laboratory Results
09/09/24
04:42
WBC 7.5
Hgb 9.5 L
Hct 27.1 L
Plt Count 381
Sodium 132 L
Potassium 3.9
Chloride 95 L
Carbon Dioxide 31 H
BUN 67 H
Creatinine 2.3 H
Glucose 96
Calcium 8.7
Vital Signs:
Vital Signs
Temp Pulse Resp BP Pulse Ox
98.1 F 85 13 155/89 97
09/09/24 07:05 09/09/24 09:12 09/09/24 06:30 09/09/24 09:12 09/09/24 06:30
I&O
09/08/24 09/09/24 09/10/24
06:59 06:59 06:59
Intake Total 250 / 250 1680 / 1680
Output Total 250 / 250 1150 / 1150
Balance 0 / 0 530 / 530
[2024-09-09] MEDS: TYLENOL 650 MG PO (16:10)
--- NOTE | 2024-09-09 16:25 | PTOTSP ---
Speech Language Pathology
Pt seen for dysphagia tx with lunch tray of regular solids/thin liquids. Adequate mastication, bolus formation, and A-P transit noted with no oral residue. No overt signs of aspiration.
Recommend:
(1) Continue regular solids/thin liquids
(2) General aspiration precautions
(3) Meds as tolerated
(4) TIME STUDY OBSERVER to sign off. Please reconsult as indicated
[2024-09-09] MEDS: ROCEPHIN 1000 MG IV (18:13)
[2024-09-09] MEDS: STERILE WATER FOR INJECTION 10 ML IV (18:13)
[2024-09-09] MEDS: MIRALAX 17 GRAMS PO (20:20)
[2024-09-09] MEDS: ATIVAN 0.5 MG IV (22:53)
[2024-09-09] MEDS: NSS (PRESERVATIVE FREE) 0.25 ML IV (22:53)
[2024-09-10] VITALS (9 sets, daily range): BP systolic 129–172; BP diastolic 76–96; BMI 19.5
[2024-09-10] MEDS: NSS 1000 IV (01:42)
[2024-09-10 05:29] LABS: Hematocrit 25.6 % (37.0-47.0); Hemoglobin 8.8 g/dL (12.0-16.0); Mean Corp Hgb Conc. 34.4 g/dL (33.0-37.0); Mean Corpuscular Hgb 31.4 pg (27.0-31.0); Mean Corpuscular Volume 91.4 fL (81.0-99.0); Mean Platelet Volume 9.7 fL (7.4-10.4); Platelet Count 395 10^3/uL (130-400); White Blood Cell Count 7.1 10^3/uL (4.8-10.8)
[2024-09-10 05:53] LABS: Blood Urea Nitrogen 52 mg/dl (7-17); Calcium 8.7 mg/dl (8.4-10.2); Carbon Dioxide 26 mmol/L (22-30); Chloride 102 mmol/L (98-107); Estimated Creatinine Clearance 20 ml/min; Glucose 96 mg/dl (70-99); Potassium 3.7 mmol/L (3.5-5.1); Sodium 132 mmol/L (135-145); eGFR 25.89
[2024-09-10] MEDS: NORVASC 5 MG PO (08:45)
[2024-09-10] MEDS: FEOSOL 325 MG PO (08:46)
[2024-09-10] MEDS: LOKELMA PO (08:46)
[2024-09-10] MEDS: WELLBUTRIN XL (24 hour extended release) 150 MG PO (08:46)
[2024-09-10] MEDS: SODIUM BICARBONATE 650 MG PO (08:46)
--- NOTE | 2024-09-10 09:02 | PTCARENOTE ---
Patient received from shift lab technician. Patient resting comfortably in bed. AAOx2-3, remains a little fleety and forgetful at times. No events noted overnight. Patient was a little more confused and agitated this AM wanting to know 'why she is hooked
up to all these machines' and 'she just wants to go'. Explained to patient in different ways until she understood . No complaints of pain in feet this AM, usually better controlled when not moving. NSS @ 65mL/hr through IV. No testing scheduled
at this time. Call [facility] in reach.
[2024-09-10] MEDS: LOKELMA 10 GRAM PO (10:42)
--- NOTE | 2024-09-10 13:59 | CM ---
Patient from [facility] with Hx pelvic Fx with Dx Acute TME, Anemia, UTI. Room air. PT/OT; assist of 2, recommend skilled rehab. Per nurse; confused, forgetful.
Met with patient and spoke with daughter Donna by phone; both agree to d/c today back to [facility] by ambulance. IMM completed.
Spoke with [facility], [facility], [facility]; they are able to accept the patient back today. Phone for report [phone], fax [phone].
Plan return to [facility] today by ambulance.
--- NOTE | 2024-09-10 14:04 | W.DCSUMMARY ---
Addendum entered and electronically signed by Emeterio Churchill MD 09/10/24 17:51:
Sepsis was present on admission
Original Note:
Discharge Summary
Discharge Data
Date of Admission: 09/07/24
Date of Discharge: 09/10/24
-
Pending Results: No
Hospital Course
73y F with PMH significant for CKD IV, hyperkalemia, anemia of CKD and recent pelvic fracture
Presented from SNF with lethargy tachycardia and poorly responsive. Initially found to have a hemoglobin of 6.7 however without evidence of active bleeding. Per GI this was likely suspected but it was related to chronic anemia and likely a result
of recent hip fracture. Received 1 unit of PRBCs with improvement of hemoglobin. Therefore, encephalopathy is suspected secondary to anemia and UTI.
Additionally, urine analysis consistent with UTI. Urine culture growing E. coli that is pansensitive. Started on Rocephin and will transition to cefdinir 300 mg twice a day for total of 7 days.
Was able to work with physical therapy recommended SNF versus LTC. However there were some complaints of right wrist/hand pain and right ankle/foot pain. Therefore x-rays were obtained. Please see reports below. These x-rays were discussed with
orthopedics which recommended outpatient follow-up for arthritis.
Head CT
IMPRESSION:
No acute intracranial abnormalities.
Findings compatible with diffuse cortical atrophy with nonspecific white matter changes as described above.
Abdominal Pelvis CT
IMPRESSION:
Markedly limited study as a result of several factors, most prominently beam hardening artifact from the patient's bilateral upper extremities and lack of intravenous contrast. There is also limited evaluation due to marked paucity of
intra-abdominal/pelvic fat.
Atrophic left kidney. No gross findings to suggest obstructive uropathy or significant perinephric stranding bilaterally.
Unopacified urinary bladder with at least mild diffuse wall thickening due to underdistention. Other etiology such as cystitis cannot be excluded.
Sigmoid diverticulosis. High attenuation density in the left colon through to the rectum the appearance of which would be most suggestive of enteric contrast.
Healing left pubic bone fractures.
CXR
IMPRESSION:
No acute cardiopulmonary process.
Ankle Xray
IMPRESSION:
No acute fractures nor dislocations noted.
Mild widening of the lateral tibiotalar joint. Probably positional and less likely tibiotalar subluxation.. The foot is deviated medially.
Soft tissue swelling about the ankle
Bony demineralization.
Foot Xray
IMPRESSION:
No definitive acute fractures identified.
Hyperextension of the tibiotalar joint. Clinical correlation for an acute or chronic finding recommended
Mild first MTP joint osteoarthritis.
Mild hallux valgus deformity.
Osteopenia.
Hand Xray
IMPRESSION: Moderate osteoarthritis of the first carpometacarpal joint with associated subluxation as described above likely chronic.
Wrist Xray
Impression: No acute fractures identified.
Probable severe osteoarthritis of the first carpometacarpal joint with subluxation versus dislocation. Clinical correlation recommended. See hand study report
Osteoarthritis of the radioulnar joint. Mild.
Was seen and examined on day of discharge which was 09/10/2024. No new complaints. No acute overnight events.
NAD, eating breakfast on around
Scleral Anicteric
MMM
No JVD
CTABL
RRR, S1/S2
Soft, NT, ND, BS+
Warm, Dry
Lower extremity pain foot and right foot internally rotated/dropped
Without ankle rest effusion/erythema nor drainage noted
AAOx person
Calm
More than 30 minutes spent in discharge including
Final examination of the patient
Summarizing hospital stay
Instructions for continuing care to all relevant caregivers
Preparation of discharge records, prescriptions, and referral forms
Total time spent (in minutes): 33mins
Discharge Plan
-
Patient Disposition: Home (Routine Discharge)
Discharge Diagnosis/Procedures: Anemia
UTI - EColi
Condition: Good
Diet: As tolerated
Activity: As tolerated
Activity Restrictions/Additional Instructions:
Presented from SNF with lethargy tachycardia and poorly responsive. Initially found to have a hemoglobin of 6.7 however without evidence of active bleeding. Per GI this was likely suspected but it was related to chronic anemia and likely a result
of recent hip fracture. Received 1 unit of PRBCs with improvement of hemoglobin. Therefore, encephalopathy is suspected secondary to anemia and UTI.
Additionally, urine analysis consistent with UTI. Urine culture growing E. coli that is pansensitive. Started on Rocephin and will transition to cefdinir 300 mg twice a day for total of 7 days.
Was able to work with physical therapy recommended SNF versus LTC. However there were some complaints of right wrist/hand pain and right ankle/foot pain. Therefore x-rays were obtained. Please see reports below. These x-rays were discussed with
orthopedics which recommended outpatient follow-up for arthritis.
Head CT
IMPRESSION:
No acute intracranial abnormalities.
Findings compatible with diffuse cortical atrophy with nonspecific white matter changes as described above.
Abdominal Pelvis CT
IMPRESSION:
Markedly limited study as a result of several factors, most prominently beam hardening artifact from the patient's bilateral upper extremities and lack of intravenous contrast. There is also limited evaluation due to marked paucity of
intra-abdominal/pelvic fat.
Atrophic left kidney. No gross findings to suggest obstructive uropathy or significant perinephric stranding bilaterally.
Unopacified urinary bladder with at least mild diffuse wall thickening due to underdistention. Other etiology such as cystitis cannot be excluded.
Sigmoid diverticulosis. High attenuation density in the left colon through to the rectum the appearance of which would be most suggestive of enteric contrast.
Healing left pubic bone fractures.
CXR
IMPRESSION:
No acute cardiopulmonary process.
Ankle Xray
IMPRESSION:
No acute fractures nor dislocations noted.
Mild widening of the lateral tibiotalar joint. Probably positional and less likely tibiotalar subluxation.. The foot is deviated medially.
Soft tissue swelling about the ankle
Bony demineralization.
Foot Xray
IMPRESSION:
No definitive acute fractures identified.
Hyperextension of the tibiotalar joint. Clinical correlation for an acute or chronic finding recommended
Mild first MTP joint osteoarthritis.
Mild hallux valgus deformity.
Osteopenia.
Hand Xray
IMPRESSION: Moderate osteoarthritis of the first carpometacarpal joint with associated subluxation as described above likely chronic.
Wrist Xray
Impression: No acute fractures identified.
Probable severe osteoarthritis of the first carpometacarpal joint with subluxation versus dislocation. Clinical correlation recommended. See hand study report
Osteoarthritis of the radioulnar joint. Mild.
Referrals:
Seymour Cedeno MD [Family Provider]
Jordan Hancock MD [Active, Orthopedics] - in two to three weeks
Prescriptions:
New
cefdinir 300 mg capsule
300 mg PO BID Qty: 10 0RF
Continued
sennosides [senna] 8.6 mg Tablet
8.6 mg PO BID
acetaminophen 325 mg Tablet
650 mg PO Q6H PRN (Reason: Pain / Fever)
polyethylene glycol 3350 [Miralax] 17 gram Powder In Packet
17 g PO HS
lidocaine 5 % Cream
1 applic TOPICAL BID
clonazepam 1 mg Tablet
1 mg PO TID
amlodipine 5 mg Tablet
5 mg PO DAILY
tramadol 50 mg Tablet
50 mg PO BID
famotidine 20 mg Tablet
20 mg PO DAILY
sodium bicarbonate 650 mg Tablet
650 mg PO BID
bisacodyl 10 mg Suppository
10 mg FL DAILY PRN (Reason: constipation)
ferrous sulfate 325 mg (65 mg iron) Tablet
325 mg PO HS
vitamin B complex Tablet
1 tab PO DAILY
heparin (porcine) 5,000 unit/mL Syringe
5,000 unit SC Q8H
bupropion HCl 150 mg Tablet Extended Release 24 Hr
150 mg PO DAILY
cholecalciferol (vitamin D3) 50 mcg (2,000 unit) Tablet
50 mcg PO DAILY
Lokelma 10 gram Powder In Packet
10 g PO DAILY
Discharge Orders:
Discharge Patient (As Directed); Ordered 09/10/24
Ordered By: Emeterio Churchill
Discharge Date and Time
Print Language: MEXICAN
[2024-09-10] MEDS: NSS IV (15:01)
--- NOTE | 2024-09-10 15:18 | PTCARENOTE ---
Report called to Nisreen Arellano to Lak[facility] OLEA. #[phone]. system support developer time 1630 by ambulance
--- NOTE | 2024-09-10 17:35 | PTCARENOTE ---
Patient discharged to [facility] via Ambulance. Report given to EMS. Patient left with all known belongings.
== END 2024-09-10 17:37 | DRG 871 ==
LOC: IMU 20:57
PROVIDERS: Nurse Practitioner Adult Health; Nurse Practitioner Family; ADMITTING PHYSICIAN Hospitalist; ATTENDING PHYSICIAN Hospitalist; CONSULT PHYSICIAN Internal Medicine Gastroenterology; EMERGENCY PHYSICIAN Emergency Medicine; FAMILY PHYSICIAN Internal Medicine
PROC: 30233N1 Transfusion of Nonautologous Red Blood Cells into Peripheral Vein, Percutaneous Approach (ICD-10-PCS; 2024-09-07)
DX: A41.9 Sepsis, unspecified organism (principal); G92.8 Other toxic encephalopathy; D62 Acute posthemorrhagic anemia; N18.4 Chronic kidney disease, stage 4 (severe); N39.0 Urinary tract infection, site not specified; E87.22 Chronic metabolic acidosis; D63.1 Anemia in chronic kidney disease; I12.9 Hypertensive chronic kidney disease with stage 1 through stage 4 chronic kidney disease, or unspecified chronic kidney disease; F41.1 Generalized anxiety disorder; E87.5 Hyperkalemia
CPT/HCPCS: 36430; 70450; 71046; 73110; 73120; 73610; 73620; 74176; 80048; 80053; 81003; 81015; 82728; 83540; 83550; 83605; 83735; 84100; 84443; 85025; 85027; 85610; 85730; 86850; 86900; 86901; 86920; 87040; 87070; 87086; 87088; 87186; 92526; 92610; 93005; 96361; 96374; 97163; 97167; 97530; 99285; P9016